=== PATIENT | male | born 1955 | race Caucasian/White ===

== ENCOUNTER 2016-11-18 08:13 | Day surgery (SDC) | payer BC ==
[2016-11-05 10:06] VITALS: BMI 25.0
--- NOTE | 2016-11-05 10:31 | PAT Medication Instructions ---
Service Date Nov 05, 2016. Current Home Medication List Meloxicam (Mobic), 15 MG PO QPM PRN for RN Pantoprazole (Protonix), 40 MG PO QAM Simvastatin (Zocor), 10 MG PO QPM Medication Instructions For Your Scheduled Surgery - Hold the following medications the morning of surgery: Meloxicam (Mobic), 15 MG PO QPM PRN (otherwise okay to continue per surgeon) - Take the following medications the morning of surgery with a sip of water OTHERWISE NOTHING TO EAT OR DRINK AFTER MIDNIGHT: Pantoprazole (Protonix), 40 MG PO QAM - Take the following medications as scheduled the night before surgery: Simvastatin (Zocor), 10 MG PO QPM If you have any questions please call us at [phone] (Emy Smith PA-C ) or [phone] or [phone]
[2016-11-05 10:58] LABS: BASO % 0.2 %; BASO ABS # 0.01 K/uL (0-0.2); COMPLETE YES; EOS % 1.4 %; HEMATOCRIT 40.6 % (42-52); IG% 0.2 %; LYMPH ABS # 1.32 K/uL (1.2-3.4); MEAN CELL VOLUME 88.5 fL (80-100); MEAN CORPUSCULAR HEMOGLOBIN 30.1 pg (25-34); MEAN PLATELET VOLUME 9.8 fL (7.4-10.4); MONO % 9.4 %; NEUT % 57.8 %; PLATELET COUNT 197 K/uL (130-400); RED BLOOD COUNT 4.59 M/uL (4.7-6.1); WHITE BLOOD COUNT 4.26 K/uL (4.8-10.8)
[2016-11-05 11:10] LABS: INR 1.1 (0.9-1.1); PROTHROMBIN TIME (PATIENT) 11.6 SECONDS (9.0-12.0)
[2016-11-05 11:23] LABS: BUN/CREATININE RATIO 18.5 (10-20); CALCIUM 9.1 mg/dl (8.5-10.1); CREATININE 1.3 mg/dl (0.60-1.40); POTASSIUM 4.3 mmol/L (3.5-5.1)
[~2016-11-18] VITALS: Ht 175.3 cm; Wt 76.9 kg
[~2016-11-18 08:13] MED LIST: CEFAZOLIN 2000 MG/60 ML D5W IV SCH; HEPARIN SOD 5000 UNIT/0.5 ML CARP SQ SCH; LACTATED RINGER'S 1000ML 1,000 ML IV SCH; MELO7.5T5 PO; PANT40TA PO; SIMV10TA2 PO
[2016-11-18] MEDS ORDERED: DEXAMETHASONE SOD INJ 4 MG/ML VIAL ONE (08:53)
[2016-11-18] MEDS ORDERED: GLYCOPYRROLATE INJ 0.2 MG/ML VIAL ONE ×2 (08:53→10:45)
[2016-11-18] MEDS ORDERED: PROPOFOL IV EMULSION 10 MG/ML 20 ML VIAL IV ONE (08:53)
[2016-11-18] MEDS ORDERED: LIDOCAINE HCL 2% 2 ML VIAL (20MG/ML) ONE (08:53)
[2016-11-18] MEDS ORDERED: MIDAZOLAM HCL 1 MG/ML 2ML VIAL ONE (08:53)
[2016-11-18] MEDS ORDERED: NEOSTIGMINE METHYLSULFATE 5 MG/5 ML SYR ONE (08:53)
[2016-11-18] MEDS ORDERED: ONDANSETRON INJ 2 MG/ML 2 ML VIAL ONE (08:53)
[2016-11-18] MEDS ORDERED: ROCURONIUM BROMIDE 10 MG/ML 5 ML VIAL ONE (08:53)
[2016-11-18] MEDS ORDERED: FENTANYL CITRATE INJ 50 MCG/1 ML 2 ML VIAL ONE ×2 (08:53→11:04)
[2016-11-18 08:56] VITALS: BP 154/69; PULSE 56; TEMP 36.7; O2SAT 97; Ht 175.3 cm; Wt 76.9 kg
[2016-11-18] MEDS ORDERED: LACTATED RINGER'S 1000ML 1,000 ML IV PRN (09:16)
[2016-11-18] MEDS ORDERED: FENTANYL CITRATE INJ 50 MCG/1 ML 2 ML VIAL IV PRN (09:30)
[2016-11-18] MEDS ORDERED: ONDANSETRON INJ 2 MG/ML 2 ML VIAL IV PRN ×2 (09:30→11:15)
--- NOTE | 2016-11-18 09:54 | History & Physical Bridge Note ---
H&P Re-Evaluation Bridge Note: I have examined the patient, reviewed the History & Physical and in the interval since the performance of the History & Physical I have noted the following changes of clinical significance: No changes noted
[2016-11-18] MEDS ORDERED: BUPIVACAINE/EPINEPHRINE 0.5% MPF 1:200,000 30 ML VIAL INJ ONE (11:00)
[2016-11-18] MEDS ORDERED: LACTATED RINGER'S 1000ML 1,000 ML IV SCH (11:13)
--- NOTE | 2016-11-18 11:13 | [facility] Operative Report ---
Operative Report Operative Date Nov 18, 2016. Pre-Operative Diagnosis Right Inguinal Hernia Post-Operative Diagnosis large direct [facility] Surgeon Dr. Shay Torres Fundraising Officer Surgeon(s) None Estimated Blood Loss 10ml Findings direct [facility] Specimens None per surgeon Anesthesia GET Complication(s) None Disposition Recovery Room / PACU I attest to the content of the Intraoperative Record and any orders documented therein. Any exceptions are noted below.
[2016-11-18] MEDS ORDERED: IBUPROFEN 200 MG TAB PO PRN (11:15)
[2016-11-18] MEDS ORDERED: HYDROCODONE/ACETAMOPHEN 5/325MG TAB PO PRN ×2 (11:15)
[2016-11-18] MEDS ORDERED: MoRPHine SULFATE 4 MG/ML 1 ML CARP\\VIAL IV PRN (11:15)
[2016-11-18] MEDS ORDERED: HYDR-5688 PO (11:16)
--- NOTE | 2016-11-18 11:17 | Discharge Instructions ---
Discharge Instructions Admission Reason for Admission: Right Inguinal Hernia Discharge Discharge Diagnosis / Problem: right inguinal hernia Discharge Goals Goal(s): Decrease discomfort, Improve function Activity Recommendations Activity Limitations: as noted below Lifting Limitations: no more than 10 pounds Exercise/Sports Limitations: until after follow-up appointment May Resume Sexual Activity: after follow-up appointment Shower/Bathe: tomorrow . Instructions / Follow-Up Instructions / Follow-Up follow up with Dr. Torres in 1-2 weeks. Current Hospital Diet Patient's current hospital diet: Discharge Diet Recommended Diet: Regular Diet Procedures Procedures Performed: Open Right Inguinal Hernia Repair with Mesh Pending Studies Studies pending at discharge: no Medical Emergencies . Who to Call and When: Medical Emergencies: If at any time you feel your situation is an emergency, please call 911 immediately. . Non-Emergent Contact Non-Emergency issues call your: Primary Care Provider, Surgeon Call Non-Emergent contact if: temperature is above 101, your pain is not controlled, wound has increased drainage, wound has increased redness, wound has increased pain . "Provider Documentation" section prepared by Shay Torres. VTE Core Measure Inpt VTE Proph given/why not?: Unfractionated heparin SQ, SCD's
--- NOTE | 2016-11-18 11:35 | OPERATIVE REPORT ---
DATE OF OPERATION: 11/18/2016 PREOPERATIVE DIAGNOSIS: Right inguinal hernia. POSTOPERATIVE DIAGNOSIS: Large direct right inguinal hernia. PROCEDURE: Open right inguinal hernia repair with mesh. SURGEON: Dr. Torres. ESTIMATED BLOOD LOSS: 10 mL. COMPLICATIONS: No immediate complications. ANESTHESIA: General. The patient tolerated the procedure well. OPERATION AND FINDINGS: OPERATIVE NOTE: After informed consent was obtained, the patient was taken to the operating suite, placed in supine position. After successful intubation a Prince catheter was placed. The right inguinal region was shaved and sterilely prepped and draped in usual fashion. An inguinal incision was made with a 10 blade scalpel and carried down through the soft tissue using electrocautery. The external oblique aponeurosis was skeletonized. A new blade was used to make a small incision in it and Metzenbaum scissor was used to carry this distally through the external ring as well as for several centimeters proximally. Blunt dissection was then performed to dissect the cord and cord structures away from surrounding muscle. I was able to elevate the cord and cord structures off the pubic bone with blunt finger and place a Basile drain around it. Once we did this, it was obvious that there was a large direct inguinal hernia, almost the entire floor of the inguinal canal was blown out. We did bluntly dissect through the cord and cord structures. There was no evidence of an indirect hernia. Once we had all this delineated we then used a piece of polypropylene salas-holed mesh as an onlay. We secured it distally to Leonard's ligament, laterally along the shelving portion of Poupart's ligament and medially along the rectus musculature. The "arms" of the mesh were wrapped around behind the cord and cord structures and secured to underlying muscle. The mesh laid nice and tension free and it did not impinge upon the cord and cord structures. There was adequate hemostasis at the end of the procedure. We thoroughly irrigated the inguinal canal. I placed Marcaine around the edges of the mesh for postoperative analgesia. We closed the external oblique aponeurosis with 2-0 Vicryl in a running fashion. Soft tissue was irrigated and closed with 3-0 Vicryl and 4-0 Monocryl. Some additional Marcaine was injected around the skin and Dermabond glue used as a dressing. The patient was awakened, extubated, and transferred to recovery in stable condition. I attest to the content of the Intraoperative Record and any orders documented therein. Any exceptio ns are noted below.
[2016-11-18 12:05] VITALS: BP 129/67; PULSE 53; TEMP 36.4; O2SAT 96
--- NOTE | 2016-11-18 12:12 | Anesthesiology Progress Note ---
Anesthesia Post Op Note Date & Time Nov 18, 2016 at 12:12 Vital Signs Pain Intensity: 0 Vital Signs Past 12 Hours Date Time Temp Pulse Resp B/P Pulse Ox O2 Delivery O2 Flow Rate FiO2 11/18/16 12:00 48 16 96 11/18/16 12:00 50 16 11/18/16 11:58 130/71 11/18/16 11:58 36.4 11/18/16 11:55 59 16 96 11/18/16 11:55 59 16 11/18/16 11:54 128/70 11/18/16 11:52 52 16 11/18/16 11:52 52 16 96 11/18/16 11:48 129/70 11/18/16 11:47 60 16 96 11/18/16 11:47 60 16 11/18/16 11:43 126/71 11/18/16 11:42 58 16 95 11/18/16 11:42 58 16 11/18/16 11:41 60 13 96 11/18/16 11:41 60 13 11/18/16 11:38 130/74 11/18/16 11:36 59 14 11/18/16 11:36 59 14 100 11/18/16 11:33 126/70 11/18/16 11:31 61 16 11/18/16 11:31 61 16 100 11/18/16 11:30 63 17 100 11/18/16 11:30 63 17 11/18/16 11:28 128/67 11/18/16 11:25 65 15 100 11/18/16 11:25 65 15 11/18/16 11:23 132/70 11/18/16 11:20 66 13 100 11/18/16 11:20 67 13 11/18/16 11:20 36.6 71 16 139/71 100 Mask 10 11/18/16 08:56 36.7 56 20 154/69 97 Room Air Notes Mental Status: alert / awake / arousable, participated in evaluation Pt Amnestic to Procedure: Yes Nausea / Vomiting: adequately controlled Pain: adequately controlled Airway Patency, RR, SpO2: stable & adequate BP & HR: stable & adequate Hydration State: stable & adequate Anesthetic Complications: no major complications apparent
[2016-11-18 12:35] VITALS: BP 137/74; PULSE 75; TEMP 36.3; O2SAT 95
[2016-11-18] MEDS ORDERED: HYDROCODONE/ACETAMOPHEN 5/325MG TAB ONE (12:54)
[2016-11-18] MEDS ORDERED: NURSING VERBAL MED ORDER ONE (13:00)
[2016-11-18 13:10] VITALS: BP 139/74; PULSE 60; TEMP 36.3; O2SAT 96
[2016-11-18] MEDS ORDERED: KETOROLAC TROMETHAMINE 30 MG/ML VIAL IV. ONE (13:15)
[2016-11-18 14:10] VITALS: BP 133/75; PULSE 48; O2SAT 96
[2016-11-18 14:33] VITALS: TEMP 36.4
== END 2016-11-18 14:33 | disposition home or self-care (01) ==
LOC: C.ACU 08:13
PROVIDERS: ATTEND Surgery
DX: K40.90 Unilateral inguinal hernia, without obstruction or gangrene, not specified as recurrent (principal); K21.9 Gastro-esophageal reflux disease without esophagitis; L57.0 Actinic keratosis; M47.812 Spondylosis without myelopathy or radiculopathy, cervical region; M50.90 Cervical disc disorder, unspecified, unspecified cervical region; E78.01 Familial hypercholesterolemia; M47.816 Spondylosis without myelopathy or radiculopathy, lumbar region

== ENCOUNTER → 2017-07-06 | Outpatient (CLI) | payer BC, OTHER ==
[~2017-07-06] MED LIST changes: -CEFAZOLIN 2000 MG/60 ML D5W IV SCH; -HEPARIN SOD 5000 UNIT/0.5 ML CARP SQ SCH; -LACTATED RINGER'S 1000ML 1,000 ML IV SCH
[2017-07-06 13:43] LABS: ALT/SGPT 31 U/L (12-78); BLOOD UREA NITROGEN 29 mg/dl (7-18); BUN/CREATININE RATIO 22.3 (10-20); CALCIUM 9.4 mg/dl (8.5-10.1); CARBON DIOXIDE 29 mmol/L (21-32); CHLORIDE 107 mmol/L (98-107); GLUCOSE 98 mg/dl (70-99); SODIUM 142 mmol/L (136-145)
[2017-07-06 13:46] LABS: CHOLESTEROL 169 mg/dl (0-200); CHOLESTEROL/HDL RATIO 3.4; HDL CHOLESTEROL 49 mg/dl; TRIGLYCERIDES 63 mg/dl (0-150); VERY LOW DENSITY LIPOPROT CALC 13 mg/dl
== END | disposition home or self-care (01) ==
LOC: C.LABMFLN 09:50
PROVIDERS: ATTEND Family Medicine
DX: E78.01 Familial hypercholesterolemia (principal)